=== PATIENT | male | born 2005 | race Caucasian/White ===

== ENCOUNTER 2024-04-24 06:37 | Emergency (ER) | payer OTHER, SELFPAY ==
[2024-04-24 06:38] VITALS: BP 123/78; PULSE 80; RESP 15; TEMP 37.1; O2SAT 100; BMI 33.9
--- NOTE | 2024-04-24 07:14 | EKG12_ITS ---
Test Reason : CP Blood Pressure : */* mmHG Vent. Rate : 73 BPM Atrial Rate : 73 BPM P-R Int : 152 ms QRS Dur : 90 ms QT Int : 348 ms P-R-T Axes : 83 72 42 degrees QTcB Int : 383 ms Normal sinus rhythm with sinus arrhythmia Normal ECG Confirmed by ERNESTO MUSTAFA, NESSA ([id number]), editor department KULDEEP DIAZ ([id number]) on 04/25/2024 8:07:29 AM Referred By: Confirmed By: NESSA OROZCO MD
--- NOTE | 2024-04-24 07:14 | RAD_ITS ---
EXAM: XR CHEST, 2 VIEWS CLINICAL INDICATION: chest pain TECHNIQUE: Frontal and lateral views of the chest. COMPARISON: No relevant prior studies available. FINDINGS: LUNGS AND PLEURAL SPACES: Unremarkable. No consolidation or edema. No pneumothorax. No effusion. HEART: Unremarkable. Cardiac silhouette not enlarged. MEDIASTINUM: Central airways and mediastinal contour are unremarkable. BONES/JOINTS: Unremarkable. No acute fracture. SOFT TISSUES: Unremarkable. RAD/Chest PA and Lateral IMPRESSION: No radiographic evidence of acute cardiopulmonary disease. Electronically Signed: Kenneth Valerio MD at 7:53 EST ,
[2024-04-24] MEDS: Ketorolac 30 MG/ML Syringe IV (07:22)
[2024-04-24 07:36] LABS: Absolute Lymphocyte Count 1.65 X10^3/uL (0.83-4.51); Absolute Neutrophil Count 3.6 X10^3/uL (2.0-7.7); Basophil# 0.04 X10^3/uL; Basophil% 0.7 % (0-1); Eosinophil# 0.18 X10^3/uL; Hematocrit 44.2 % (40-54); Hemoglobin 14.9 g/dL (13.0-16.5); Lymphocyte # 1.65 X10^3/ul (0.83-4.51); Lymphocyte % 27.8 % (19-41); Mean Corp Hgb Conc 33.7 g/dL (32-36); Mean Corpuscular Hgb 28.9 pg (27.0-32.0); Mean Corpuscular Volume 85.7 fL (80-94); Mean Platelet Vol. 9.8 fl (6.2-12.0); Monocyte# 0.49 X10^3/uL; Monocyte% 8.2 % (0-10); NRBC Flagged by Analyzer 0 % (0-5); Neutrophil # 3.56 X10^3/uL (2.7-7.7); Platelet Count 205 K/mm3 (150-450); RBC Distribution Width CV 12.5 % (11.6-14.6); RBC Distribution Width SD 39.2 fl (35.1-43.9); Red Blood Count 5.16 M/mm3 (4.6-6.2); White Blood Count 5.9 K/mm3 (4.4-11.0)
[2024-04-24 07:38] VITALS: BP 114/72; PULSE 68; RESP 16; O2SAT 97
--- NOTE | 2024-04-24 07:41 | EDS_ITS ---
HPI History of Present Illness Chief Complaint: Chest Pain Informant: patient and parent Narrative Narrative: Patient is a 19-year-old male with no significant past medical history. He reports over the last 12 to 24 hours he has noticed intermittent midsternal ch est discomfort. He denies any recent trauma but does state he did increase physical activity recently before the pain started. He denies any illicit drug use or excessive stimulant use. He denies any family history of cardiac disease at a young age. He denies any recent travel or surgery or history of DVT/PE. He also reports he has not been sick with cough or congestion or shortness of breath. However as he has not experienced this pain before he was concerned that it could be cardiac in nature and therefore comes in for evaluation [facility] Medical History no medical history no medical history Home Medications ?Medication ?Instructions ?Recorded ?Last Taken ?Type ibuprofen 600 mg tablet 600 mg PO 4X/DAY PRN pain #40 tabs 04/24/24 Unknown Rx Allergy/AdvReac Type Severity Reaction Status Date / Time No Known Allergies Allergy Verified 04/24/24 06:38 Surgical History no surgical history Social History Smoking Status: Never smoker ROS ROS ED Constitutional Constitutional ED: Denies chills or fever(s) Eyes Eyes: Denies blurry vision, change in vision or diplopia ENT ENT ED: Denies sore throat Cardiovascular Cardiovascular: Reports chest pain; Denies palpitations or racing heartbeat Respiratory/Chest Respiratory/Chest: Denies cough or dyspnea Gastrointestinal Gastrointestinal: Denies abdominal pain, diarrhea, nausea or vomiting Genitourinary Genitourinary ED: Denies dysuria Musculoskeletal Musculoskeletal: Denies back pain Integumentary Denies rash Neurologic Neurologic: Denies headache(s) Hematologic/Lymphatic Hematologic/Lymphatic: Denies easy bleeding or easy bruising EXAM Physical Exam Const Vital Signs: 04/24/24 06:38 04/24/24 07:38 Temperature 98.7 F Temperature Source Oral Pulse Rate 80 68 Respiratory Rate 15 16 Blood Pressure 123/78 H 114/72 Blood Pressure Mean 93 86 Pulse Ox 100 97 Oxygen Delivery Method Room Air Positive well nourished, well developed and obese General Appearance ED: well developed; Negative for pallor Nutritional Appearance: obese HEENT HEENT Narrative: Normocephalic atraumatic Eyes PERRL and EOMs intact bilaterally General Eye ED: Negative for scleral icterus Neck supple Neck Narrative: No nuchal rigidity or meningeal signs Chest Wall Chest Narrative: There is reproducible midsternal chest pain with palpation. Patient states this is the same pain he has been experiencing. No bony deformity or crepitance noted. No overlying soft tissue changes to suggest Resp normal respiratory effort and clear to auscultation bilaterally Cardio regular rate and regular rhythm Rate: other Other Details: Regular rate and rhythm without murmurs rubs or gallop Radial and carotid pulses are equal and symmetric GI normal to inspection, nondistended, normoactive bowel sounds, non-tender, non- distended and no masses Auscultation: normoactive bowel sounds Palpation: soft Extremity normal to inspection Extremity Narrative: No asymmetric edema no pitting edema negative Homans' sign bilaterally Neuro oriented x3, CN's II-XII intact bilaterally and no sensory deficits noted Sensorium / Orientation: alert Motor Exam: strength 5/5 throughout Psych mental status grossly normal Skin no rashes or lesions noted and no wounds General Skin Exam: Negative for jaundice or pallor MDM MDM MDM Narrative Medical decision making narrative: Patient arrived to ER with stable vitals. He had midsternal chest pain that was reproducible in nature. History and exam is most consistent with costochondritis. In order to ensure that this is not an atypical acute coronary syndrome an EKG as well as basic blood work ordered. EKG shows sinus rhythm without ischemic or dysrhythmia change. Blood work reveals no leukocytosis going against infectious process as well as no signs of electrolyte abnormality and his troponin is normal going against ACS as well. As the patient does not have pleuritic chest pain and he is not tachycardic and has no risk factors for DVT/PE he is PERC negative and therefore no need for D-dimer. Chest x-ray confirmed no lung pathology such as sternal fracture pneumothorax or pneumonia. After receiving IV Toradol patient did have improvement of his symptoms and vitals remained stable. Therefore at this time with negative workup and the fact patient is low risk for ACS there is no need for further evaluation he is otherwise safe for discharge History & Record Review Discussion w/independent historian: Patient and Family Lab Data Attestation: I reviewed the patient's lab results. Labs: Laboratory Results - last 24 hr 04/24/24 07:20 WBC 5.9 RBC 5.16 Hgb 14.9 Hct 44.2 MCV 85.7 MCH 28.9 MCHC 33.7 RDW Std Deviation 39.2 RDW Coeff of [place] 12.5 Plt Count 205 MPV 9.8 Immature Gran % (Auto) 0.300 Neut % (Auto) 60.0 Lymph % (Auto) 27.8 [place] % (Auto) 8.2 Eos % (Auto) 3.0 Baso % (Auto) 0.7 Absolute Neuts (auto) 3.6 Absolute Lymphs (auto) 1.65 Nucleated RBC % 0 Radiography Diagnostic Testin view chest x-ray as interpreted by the emergency medicine physician reveals no acute infiltrate pneumothorax or pleural effusion widened mediastinum or fracture Discharge Plan Triage Chief Complaint: Chest Pain ED Provider: Dimitrios Chávez Dx/Rx/DC Orders Clinical Impression: Acute costochondritis Instructions: Costochondritis Prescriptions: New ibuprofen 600 mg tablet 600 mg PO 4X/DAY PRN (Reason: pain) Qty: 40 0RF Primary Care Provider: Ja Goldberg Referrals: Ja Goldberg MD [Primary Care Provider] - Activity Restrictions/Additional Instructions: Your workup today did not show any signs of heart damage fracture or pneumonia. Your exam and workup indicate inflammation of your sternum and rib joints known as costochondritis. Take the prescribed ibuprofen as directed to help control symptoms and return to the ER should you have any further concerns Print Language: Sammarinese Disposition Disposition: Home, Self Care
[2024-04-24 07:51] LABS: Anion Gap 5 (5-15); BUN 16 mg/dL (7-18); BUN/Creat Ratio 21.3 RATIO (10-20); Calcium,Total 9.7 mg/dL (8.5-10.1); Chloride 103 mmol/L (98-107); Creatinine, Serum 0.75 mg/dL (0.70-1.30); EST Glomerular Filtration Rate 141 mL/min (>60); Est Glom Filt Rate - Afr Amer 170 mL/min (>60); Estimated Creatinine Clearance 198.44 ml/min; Glucose 102 mg/dL (74-106); Potassium 4.1 mmol/L (3.5-5.1); Sodium Level 139 mmol/L (136-145); Troponin-I HS 4 pg/mL (3.0-78.0)
[2024-04-24 08:15] VITALS: BP 121/78; PULSE 66; RESP 16; TEMP 36.3; O2SAT 97
== END 2024-04-24 08:17 | disposition home or self-care (01) ==
PROVIDERS: Emergency Provider Emergency Medicine; PCP Family Medicine; Visit Provider Emergency Medicine
DX: M94.0 Chondrocostal junction syndrome [Tietze] (principal)
CPT/HCPCS: 71046; 80048; 84484; 85025; 93005; 96374; 99283; A4216